=== PATIENT | female | born 1960 | race Caucasian/White ===

== ENCOUNTER 2024-07-27 18:44 | Emergency (ER) | payer OTHER, SELFPAY ==
--- NOTE | ~2024-07-27 | XR_ITS ---
EXAMINATION: XR WRIST, RIGHT CLINICAL INFORMATION: Post reduction. COMPARISON: Wrist radiographs 07/28/2024. TECHNIQUE: PA, lateral, and oblique views of the right wrist. FINDINGS: Overlying splinting material is present and obscures visualization of fine anatomic details. Partial visualization is made of a comminuted fracture of the distal radius with mild dorsal angulation. Partial visualization is made of a minimally displaced transverse fracture of the ulnar styloid process. XR/XR wrist RT 2V IMPRESSION: *Comminuted fractures of the distal right radius with partial interval reduction compared with 07/28/2024 12:04 AM. *Minimally displaced transverse fracture of the ulnar styloid process. Electronically signed by: Smith Hi MD 07/28/2024 01:57 AM [facility]
--- NOTE | ~2024-07-27 | XR_ITS ---
EXAMINATION: XR HAND/WRIST, RIGHT CLINICAL INFORMATION: Fall. Fracture. COMPARISON: None available. TECHNIQUE: PA, lateral, and oblique views of the right hand and wrist. FINDINGS: There is a comminuted distal radial fracture with intra-articular extension. There is mild dorsal angulation. A small ulnar styloid displaced fractures noted as well. The carpal bones are well-aerated without fracture. Moderate soft tissue wrist swelling is noted. XR/XR hand wrist RT IMPRESSION: Comminuted distal radial fracture with intra-articular extension and dorsal angulation. Minimally displaced ulnar styloid process fracture. Moderate right wrist soft tissue swelling. Electronically signed by: Rodolfo Griffin MD 07/27/2024 09:23 PM EST [facility]
--- NOTE | ~2024-07-27 | XR_ITS ---
EXAMINATION: XR WRIST, RIGHT CLINICAL INFORMATION: Post reduction COMPARISON: 07/27/2024 7:59 PM TECHNIQUE: PA and lateral views of the right wrist. FINDINGS: There is a comminuted transverse fracture across across the distal radial metaphysis with dorsal angulation of the distal fracture fragment. There is a fracture of the ulnar styloid at its base with no significant displacement. No other fractures are seen. XR/XR wrist RT 2V IMPRESSION: Distal radial and ulnar fractures as described above. Electronically signed by: Geronimo Marmolejo MD 07/28/2024 01:38 AM [facility]
[2024-07-27 19:20] VITALS: BP 108/80; PULSE 55; RESP 16; TEMP 36.7; O2SAT 98; BMI 19.7
--- NOTE | 2024-07-27 19:26 | ED_ITS ---
HPI - General Adult General Chief complaint: Extremity Injury, Upper Stated complaint: R wrist injury, ?wrist fx Time Seen by Provider: 07/27/24 23:11 Source: patient Mode of arrival: ambulatory Limitations: no limitations History of Present Illness ED Provider: Dr. Anton Hernández HPI narrative: 63-year-old female who presents emergency department for evaluation of right wrist injury. 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 Patient has an obvious deformity of her wrist and she came to the emergency department for evaluation. She denied any other injury. Related Data Previous Rx's ?Medication ?Instructions ?Recorded morphine 15 mg immediate release 15 mg PO Q8H PRN pain #10 tabs 07/28/24 tablet Allergies Allergy/AdvReac Type Severity Reaction Status Date / Time No Known Allergies Allergy Verified 07/27/24 19:23 Physical Exam ED Vital Signs: Vital Signs - 24 hr 07/27/24 19:20 07/28/24 00:49 Temperature 98.0 F 98.2 F Pulse Rate 55 58 Respiratory Rate 16 18 Blood Pressure 108/80 114/33 L Pulse Oximetry 98 96 Oxygen Delivery Method Room Air Room Air BMI result Body Mass Index 19.7 Vital signs were normal Exam: Right wrist revealed an obvious deformity of the distal radius with soft tissue swelling, her wrist is neurovascularly intact. There is no skin breakdown. Course Course Course Narrative: RME: 63 yold male presents to the ED right wrist/hand pain. patient fell on ground while playing picket ball. patient states no head trauma. Right wrist deformity on exam. xray ordered. Vascular and nueor exam intact. motor exam limited. Medications Administered Discontinued Medications Generic Name Dose Route Start Last Admin Trade Name Freq PRN Reason Stop Dose Admin Lidocaine HCl 5 ml 07/27/24 23:14 07/27/24 23:31 Lidocaine Hcl 1 % Mpf 5 Ml Vial INFILTRATI 07/27/24 23:15 5 ml ONCE STA Administration Lidocaine HCl 5 ml 07/27/24 23:17 07/27/24 23:31 Lidocaine Hcl 1 % Mpf 5 Ml Vial INFILTRATI 07/27/24 23:18 5 ml ONCE STA Administration Morphine Sulfate 15 mg 07/28/24 00:46 07/28/24 00:53 Morphine Sulfate Immed Release 15 Mg Tablet PO 07/28/24 00:47 15 mg ONCE ONE Administration Oxycodone HCl 5 mg 07/27/24 21:38 07/27/24 21:41 Oxycodone Hcl Immed Release 5 Mg Tablet PO 07/27/24 21:39 5 mg ONCE ONE Administration Procedures Orthopedic Fracture Reduction Right radius/ulnar fracture: Side: right Fracture Reduction Location: radius and ulna Analgesia: hematoma block (10 cc of 1% lidocaine) Technique: traction/counter-traction and finger traps Post Reduction X-rays Demonstrate: anatomical reduction Post-reduction neuro exam: intact Post-reduction vascular exam: no change Splint Applied: Yes Additional Comments: The patient was placed in an ortho glass splint by me. Initially applied 3 layers of cast padding. I used a 4 in x 30 in prepackaged ortho glass splint in order to create a sugar-tong splint. After the splint was applied, patient's hand was reexamined and she remains neurovascularly intact. Medical Decision Making Medical Decision Making [facility] Narrative: 63-year-old female who presents emergency department for evaluation of a fall and injury to her right wrist with an obvious deformity. 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 Exam did reveal obvious deformity to the distal radius with her extremity being neurovascularly intact Differential diagnosis: ?Includes but is not limited to right wrist sprain, right wrist fracture, Course: 00:56 The x-ray revealed a comminuted distal radius fracture with intra-articular extension and dorsal angulation with minimal displaced styloid process fracture. The patient was given a hematoma block with 10 cc of lidocaine and the fracture was reduced by me. The patient was then placed in a padded ortho glass sugar- tong splint. Patient was initially given oxycodone 5 mg orally and required a 2nd dose of pain medications-morphine 15 mg orally. Patient was discharged home and advised to follow-up with our hand surgeon Dr. King for re-evaluation within 1 week. Patient was advised to take Tylenol and ibuprofen for pain and for pain not relieved by these medications she was prescribed oxycodone. Radiology Impression Discussion of test interpretation with radiology: I have reviewed the radiologist's reading. Radiologist Impression: XR hand wrist RT IMPRESSION: Comminuted distal radial fracture with intra-articular extension and dorsal angulation. Minimally displaced ulnar styloid process fracture. Moderate right wrist soft tissue swelling. Electronically signed by: Rodolfo Griffin MD 07/27/2024 09:23 PM EST RP Dictated By: Rodolfo Griffin MD Prescription Management I considered prescription management with: Pain Medication (Morphine) Discharge Plan Discharge Clinical Impression: Closed fracture distal radius and ulna Qualifiers: Encounter type: initial encounter Laterality: right Qualified Code(s): S52.501A - Unspecified fracture of the lower end of right radius, initial encounter for closed fracture Patient Disposition: Home, Self-Care Instructions: Wrist Fracture in Adults (ED) Additional Instructions: You broke both bones in your forearm near your wrist (radius and ulnar styloid process) The radius fracture is broken into several pieces and the break does extend into the joint space. The radiology interpretation is below Sometimes these fractures need an operation to fix them and sometimes they can be treated with a cast. Call our orthopedic hand surgeon, Dr. King office tomorrow to make a follow- up appointment within 5-7 days. Take ibuprofen 200 mg pills, 2 pills every 6 hours as needed for pain. Take Tylenol (acetaminophen) 2 pills every 6 hours as needed for pain. For pain not relieved by ibuprofen or Tylenol take morphine 15 mg pills, 1 pill every 6 hours as needed for pain. This medication will make you sleepy, do not drive or work while taking this medication. Morphine is a narcotic medication and can be addicting. If you are concerned about addiction you can ask the pharmacist for less pills or do not get this prescription filled. Please return to the emergency department if your symptoms get worse or if you develop any symptoms that are concerning to you. XR hand wrist RT IMPRESSION: Comminuted distal radial fracture with intra-articular extension and dorsal angulation. Minimally displaced ulnar styloid process fracture. Moderate right wrist soft tissue swelling. Electronically signed by: Rodolfo Griffin MD 07/27/2024 09:23 PM EST RP Dictated By: Rodolfo Griffin MD Prescriptions: New morphine 15 mg tablet 15 mg PO Q8H PRN (Reason: pain) Qty: 10 0RF Rx Instructions: Partial Fill upon patient request. Referrals: Urmila King MD [Physician] - 1 week (XR hand wrist RT IMPRESSION: Comminuted distal radial fracture with intra-articular extension and dorsal angulation. Minimally displaced ulnar styloid process fracture. ) Discharge Date/Time: 07/28/24 00:56 Print Language: Monegasque
[2024-07-27] MEDS: oxyCODONE HCl Immed Release 5 MG TABLET PO (21:41)
[2024-07-27] MEDS: Lidocaine HCl 1 % MPF 5 ML VIAL INFILTRATI ×2 (23:31)
--- NOTE | 2024-07-27 23:32 | PC.NURSE ---
Patient placed in finger lock with weights by Dr. Hernández.
--- NOTE | 2024-07-28 00:01 | PC.NURSE ---
patient removed from finger trap.
[2024-07-28 00:49] VITALS: BP 114/33; PULSE 58; RESP 18; TEMP 36.8; O2SAT 96
[2024-07-28] MEDS: Morphine Sulfate Immed Release 15 MG TABLET PO (00:53)
== END 2024-07-28 00:56 | disposition home or self-care (01) ==
PROVIDERS: Emergency Provider Emergency Medicine Emergency Medical Services; PCP Internal Medicine
DX: S52.501A Unspecified fracture of the lower end of right radius, initial encounter for closed fracture (principal); M25.531 Pain in right wrist; M79.641 Pain in right hand; X58.XXXA Exposure to other specified factors, initial encounter; Y93.69 Activity, other involving other sports and athletics played as a team or group; Y92.312 Tennis court as the place of occurrence of the external cause; Y99.0 Civilian activity done for income or pay
CPT/HCPCS: 25605; 73100; 73110; 73130; 99283; 99284; J2003

== ENCOUNTER 2024-08-03 07:55 | Outpatient (REF) | payer OTHER, SELFPAY | END 2024-08-03 07:56 | disposition home or self-care (01) | LOC: HO.HOSX 07:55 | DX: M25.531 Pain in right wrist (principal); S52.501D Unspecified fracture of the lower end of right radius, subsequent encounter for closed fracture with routine healing | CPT/HCPCS: 73110; 99202 ==

== ENCOUNTER 2024-08-03 13:54 | Outpatient (AMB) | payer OTHER, SELFPAY ==
--- NOTE | 2024-08-03 14:08 | MHC.OFFVIS ---
Intake Visit Reasons: FC - Right Distal Rad & Ulnar Styloid Fx 07/27/24 Intake Note: Juliana is a 63 year old female who presents today as a new patient for a fracture care visit for her closed fracture of distal radius and ulna. 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 Patient was reduced in ED. Pt states she does have pain here and there. Pt denies any previous surgeries on her right arm. Allergies No Known Allergies Allergy (Verified 08/03/24 14:08) HPI HPI FC - Right Distal Rad & Ulnar Styloid Fx 07/27/24: Details: Patient is a 63-year-old female who presents for ED follow-up status post right distal radius and ulnar styloid fractures, date of injury 07/27/2024. On that date, the patient reports that she was playing pickleball, and she was using a bone machine to practice lateral movement, when she tripped and fell over her foot and landed on her right wrist, and she immediately noticed a significant deformity and pain at that time. Patient was evaluated in the emergency department that day, where x-rays revealed a displaced fracture of the right distal radius and nondisplaced fracture of the right ulnar shaft. Fracture was reduced in the emergency department, as well as splinted. Physical Exam Extrem Other: Patient is alert, oriented, and in no acute distress. Sugar-tong splint that was applied postreduction is in place Neuro: Normal sensation of the tips of all digits of the right hand at this time Vascular: Cap refill brisk Pain: Patient reports no tenderness to palpation of the digits of the right hand at this time Range of motion of the right hand painless ROM: Patient is able to flex and extend the digits of the right hand without difficulty Skin: No lacerations or abrasions. General: Some mild edema noted of the digits of the right upper extremity No ecchymosis, erythema, or evidence of infection. Psych: Appears grossly normal Affect normal Attitude cooperative Patient is alert, oriented, and in no acute distress. Results Reviewed Results Reviewed: X-rays obtained in the office today and independently reviewed by me, Rashad Voss PA-C, demonstrate minimally displaced fracture of the right distal radius, postreduction, with approximately 5 degrees of dorsal tilt. Assessment & Plan Assessment & Plan (1) Fracture of right distal radius: Code(s): S52.501A - Unspecified fracture of the lower end of right radius, initial encounter for closed fracture Category: Medical Plan 1. Fracture of right distal radius Post reduction in the ED Patient appears to be recovering well from her injury Patient is educated about the typical recovery course At this time, patient was informed that due to only having approximately 5 degrees of dorsal angulation of the fracture, surgery can be held off for now However, patient is educated that she should remain in the splint that was applied postreduction, to avoid any risk of displacement. Patient is educated that she should not lift anything heavier than a pen or pencil in the hand to prevent any disturbance of the fracture However, patient was educated she should work on gentle range of motion of the elbow, fingers, and shoulder to prevent stiffness Patient was amenable to this plan Patient will follow-up in 1 week with repeat x-rays with Dr. King, sooner with any acute concerns Orders: Orders XR wrist RT min 3V Today M25.531 - Pain in right wrist Coding Level of Care Code New Pt Level 3 (09513) Diagnoses Fracture of right distal radius S52.501A
== END 2024-08-03 14:37 | disposition home or self-care (01) ==
PROVIDERS: PCP Internal Medicine
DX: S52.501A Unspecified fracture of the lower end of right radius, initial encounter for closed fracture (principal)
CPT/HCPCS: 99203

== ENCOUNTER 2024-08-08 15:04 | Outpatient (REF) | payer OTHER, SELFPAY | END 2024-08-08 15:05 | disposition home or self-care (01) | LOC: HO.HOSX 15:04 | PROVIDERS: Visit Provider Orthopaedic Surgery | DX: Z13.89 Encounter for screening for other disorder (principal) ==

== ENCOUNTER 2024-08-09 08:35 | Outpatient (REF) | payer OTHER, SELFPAY | END 2024-08-09 08:36 | disposition home or self-care (01) | LOC: HO.HOSX 08:35 | PROVIDERS: Visit Provider Orthopaedic Surgery | DX: M25.531 Pain in right wrist (principal); S52.501A Unspecified fracture of the lower end of right radius, initial encounter for closed fracture; S52.611A Displaced fracture of right ulna styloid process, initial encounter for closed fracture | CPT/HCPCS: 25600; 73110; 99212 ==

== ENCOUNTER 2024-08-09 14:43 | Outpatient (AMB) | payer OTHER, SELFPAY ==
--- NOTE | 2024-08-09 14:55 | A.OFFVIS_ITS ---
Vital Signs 08/09/24 14:56 Height 5 ft 7 in Weight 126 lb BMI 19.7 Intake Visit Reasons: OV- Right Distal Rad & Ulnar Styloid Fx 07/27/24 Intake Note: Juliana is a 63 yo right hand dominant female who presents for a follow up evaluation s/p right distal radius and ulnar styloid fractures, DOI 07/27/2024. Patient reports she was doing well until her splint was removed. She has not been taking anything for pain. Allergies No Known Allergies Allergy (Verified 08/09/24 15:02) HPI HPI OV- Right Distal Rad & Ulnar Styloid Fx 07/27/24: Details: Juliana is a 63 year old right hand dominant woman who presents for a right distal radius & ulnar styloid fracture, DOI: 07/27/24, after a fall playing Pickleball. She was seen in the ED where her fracture was reduced and placed in a sugar-tong splint. She says she was doing well while in her splint, but this was removed today in clinic for radiographs and she complains of new & worsening pain in her wrist since this was removed. She denies any numbness or tingling. 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 Review of Systems Const All systems reviewed & are unremarkable except as noted in HPI and below Physical Exam Vital Signs: BMI result Body Mass Index 19.7 Const General: cooperative, healthy appearing and no acute distress Orientation/consciousness: patient oriented x3 HEENT Head: Yes normocephalic and Yes atraumatic Eyes EOM: EOMs intact bilaterally Resp Effort & Inspection: normal respiratory effort and able to speak in complete sentences Cardio Jugular venous distension: no JVD Skin General skin exam: turgor normal Rashes: no rashes Neuro General: patient oriented x3 Extrem Other: Evaluation of Right Upper Extremity: The patient is alert, oriented, and in no acute distress Neuro: Median, Ulnar, Radial nerves motor and sensory intact and sensation is normal to the tips of all digits Vascular: Cap refill brisk ROM: She can bring her fingers closed to a weak fist and back into full extension, with encouragement Some stiffness in her fingers from being placed in her splint Skin: No lacerations or abrasions. General: Resolving swelling and ecchymosis No Erythema or evidence of infection. Only very Mild tenderness over the distal radius, including over that dorsal ulnar fragment No tenderness over the distal ulna Radiographs: 3 views of the right wrist were taken and viewed by me today in clinic. They show a comminuted intra-articular distal radius fracture with satisfactory fracture alignment & some displacement of the dorsal ulnar fragment of the distal radius, unchanged from prior There is also a minimally displaced ulnar styloid process fracture Psych Appearance: grossly normal Affect: normal affect Attitude: cooperative Office Procedures AMB Fracture Care Details: Fracture care [id number] Fracture Billing Code: Fracture Billing Code Assessment & Plan Assessment & Plan (1) Fracture of right distal radius: Code(s): S52.501A - Unspecified fracture of the lower end of right radius, initial encounter for closed fracture Category: Medical (2) Fracture of right ulnar styloid: Code(s): S52.611A - Displaced fracture of right ulna styloid process, initial encounter for closed fracture Category: Medical Plan Assessment & Plan: 1. Right distal radius fracture, comminuted and intra-articular S/P fall, DOI: 07/27/24 Reduced in the ED 2. Right ulnar styloid fracture, S/P fall, DOI: 07/27/24 I educated her about this condition I discussed operative and non-operative treatment options We will continue to manage this non-operatively She was placed in a short arm cast to be worn for the next 2 weeks She should keep her hand elevated at or above heart level when at rest at home for the next 2 weeks I discussed activity modification, she is to lift nothing heavier than a ce llphone for the next 2 weeks. She should work on gentle finger ROM exercises She will follow up in 2 weeks with X-rays 3v R wrist, OOP. Anticipate placement in velcro wrist splint or short arm cast depending on bony healing Scribed for Urmila King MD by Isidro Magana ophthalmic medical technician, on 08/09/24 at 3:10 PM, EST. Orders: Orders XR wrist RT min 3V Today M25.531 - Pain in right wrist Coding Level of Care Code Est Pt Level 3 (33510) Diagnoses Fracture of right distal radius S52.501A Fracture of right ulnar styloid S52.611A CPT Codes Fracture Care - Fracture Billing Code: Fracture Billing Code ([id number])
[2024-08-09 14:56] VITALS: BMI 19.7
== END 2024-08-09 15:55 | disposition home or self-care (01) ==
PROVIDERS: PCP Internal Medicine; Visit Provider Orthopaedic Surgery
DX: S52.501A Unspecified fracture of the lower end of right radius, initial encounter for closed fracture (principal); S52.611A Displaced fracture of right ulna styloid process, initial encounter for closed fracture
CPT/HCPCS: 25600; 99213

== ENCOUNTER 2024-08-23 09:24 | Outpatient (REF) | payer OTHER, SELFPAY ==
--- NOTE | ~2024-08-23 | XR_ITS ---
EXAMINATION: XR WRIST RIGHT CLINICAL INFORMATION: Pain in right wrist M25.531. COMPARISON: XR Right wrist 08/09/2024 TECHNIQUE: PA, lateral, and oblique views of the right wrist. FINDINGS: Soft tissue swelling at the wrist. Redemonstration of comminuted fracture of the distal radius with mild impaction and dorsal angulation of the distal fracture fragment. There is a bridging bone formation, although fracture lines are still visible. Redemonstration of a minimally displaced transverse fracture of the ulnar styloid process. XR/XR wrist RT min 3V IMPRESSION: Healing comminuted fractures of the distal radius and minimally displaced transverse fracture of the ulnar styloid process. Electronically signed by: Kimberly Alegria MD 09/27/2024 01:29 PM [facility]
== END 2024-08-23 09:25 | disposition home or self-care (01) ==
LOC: HO.HOSX 09:24
PROVIDERS: Visit Provider Orthopaedic Surgery
DX: M25.531 Pain in right wrist (principal); S52.501D Unspecified fracture of the lower end of right radius, subsequent encounter for closed fracture with routine healing; S52.611D Displaced fracture of right ulna styloid process, subsequent encounter for closed fracture with routine healing
CPT/HCPCS: 73110; 99212

== ENCOUNTER 2024-08-23 12:57 | Outpatient (AMB) | payer OTHER, SELFPAY ==
--- NOTE | 2024-08-23 13:10 | MHC.OFFVIS ---
Vital Signs 08/23/24 13:25 Height 5 ft 7 in Weight 126 lb BMI 19.7 Intake Visit Reasons: OV-RT Dis.Rad&Ulnar Rfldfzu35/13/24cast offw/xrays Intake Note: Juliana is a 63 year old right hand dominant female who presents for her follow up visit for her right distal radius and ulnar styloid fractures, DOI 07/27/2024. Cast removed and xrays updated in office. States she is doing much better from her last visit, her pain has improved. Allergies No Known Allergies Allergy (Verified 08/23/24 13:26) HPI HPI OV-RT Dis.Rad&Ulnar Ikchnvl81/13/24cast offw/xrays: Details: Juliana is a 63 year old right hand dominant woman who returns for her right distal radius & ulnar styloid fracture, DOI: 07/27/24, after a fall playing Pickleball. She says she is doing well, and feels much better than she was at her last appointment She denies any numbness or tingling. 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 Physical Exam Vital Signs: BMI result Body Mass Index 19.7 Extrem Other: Evaluation of Right Upper Extremity: The patient is alert, oriented, and in no acute distress Neuro: Median, Ulnar, Radial nerves motor and sensory intact and sensation is normal to the tips of all digits Vascular: Cap refill brisk ROM: She can bring her fingers closed to a weak fist and back into full extension, with encouragement Still has some stiffness in her fingers. We worked on range of motion exercises in clinic and she was able to actively bring her fingertips to a fist and then back into extension She is nontender to firm palpation over the distal radius fracture, except for the fragment over the far ulnar side where she does have some mild tenderness DRUJ stable. She has got perhaps 30 degrees of pronation and about 35 degrees of supination General: Swelling and ecchymosis significantly improved No Erythema or evidence of infection. Radiographs: 3 views of the right wrist were taken and viewed by me today in clinic. They show a comminuted intra-articular distal radius fracture with satisfactory fracture alignment & with increased displacement of the dorsal ulnar fragment of the distal radius, worsened from prior There is also a minimally displaced ulnar styloid process fracture. She is now at about 15 degrees of dorsal tilt on the lateral view Assessment & Plan Assessment & Plan (1) Fracture of right distal radius: Code(s): S52.501A - Unspecified fracture of the lower end of right radius, initial encounter for closed fracture Category: Medical (2) Fracture of right ulnar styloid: Code(s): S52.611A - Displaced fracture of right ulna styloid process, initial encounter for closed fracture Category: Medical Plan Assessment & Plan: 1. Right distal radius fracture, comminuted and intra-articular S/P fall, DOI: 07/27/24 Reduced in the ED 2. Right ulnar styloid fracture, S/P fall, DOI: 07/27/24 I educated her about this condition I discussed operative and non-operative treatment options We will continue to manage this non-operatively She was fitted for a velcro wrist splint, to be worn like a cast except for showering for the next 2 weeks. After 2 weeks she will remove this when at home but continue to wear this when out of the house for the following 2 weeks. I discussed activity modification, she is to slowly increase her weight limit as tolerated to ~5lbs, and work on increasing her activity over the next 4 weeks. She is still to avoid any impact activities or falls. She should work on gentle finger ROM exercises. She is now to work on pronosupination exercises, going no further than ~[address], when she is out of her splint. I ordered OT hand therapy to work on finger & wrist ROM, with the goal of working on strengthening and normalizing hand function ~4 weeks from today. She will follow up in 4 weeks with X-rays 3v R wrist, OOP. Please note that greater than 30 minutes was spent with this patient going over the history, evaluating the patient and radiographs, formulating possible treatment options, discussing them with the patient, and documenting the visit. Scribed for Urmila King MD by Isidro Magana, senior medical billing specialist, on 08/23/24 at 1:25 PM, EST. Orders: Orders XR wrist RT min 3V Today M25.531 - Pain in right wrist Coding Level of Care Code Global (06300) Diagnoses Fracture of right distal radius S52.501A Fracture of right ulnar styloid S52.611A
[2024-08-23 13:25] VITALS: BMI 19.7
== END 2024-08-23 14:08 | disposition home or self-care (01) ==
PROVIDERS: PCP Internal Medicine; Visit Provider Orthopaedic Surgery
DX: S52.501A Unspecified fracture of the lower end of right radius, initial encounter for closed fracture (principal); S52.611A Displaced fracture of right ulna styloid process, initial encounter for closed fracture
CPT/HCPCS: 99024

== ENCOUNTER 2024-09-20 14:42 | Outpatient (AMB) | payer OTHER, SELFPAY ==
--- NOTE | 2024-09-20 14:48 | MHC.OFFVIS ---
Vital Signs 09/20/24 14:50 Height 5 ft 7 in Weight 126 lb BMI 19.7 Intake Visit Reasons: OV-RT Dis.Rad&Ulnar Srmbslb72/13/24 ROM check Intake Note: Juliana is a 63 year old right hand dominant female who presents for her follow up visit for her right distal radius and ulnar styloid fractures, DOI 07/27/2024. Brace removed and xrays updated in office. States she is doing much better from her last visit, she is working on her ROM, has pain with dorsi flexion. Accompanied by: Dyan Allergies No Known Allergies Allergy (Verified 09/20/24 15:23) HPI HPI OV-RT Dis.Rad&Ulnar Zdquqid83/13/24 ROM check: Details: Juliana is a 63 year old right hand dominant woman who returns for her right distal radius & ulnar styloid fracture, DOI: 07/27/24, after a fall playing Pickleball. She says she is doing well, and feels much better than she was at her last appointment. She is here for a ROM check. She denies any numbness or tingling. She reports some pain with dorsiflexion but says this is tolerable. She has been attending OT hand therapy. 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 Wrist ROM: Full pronation ~60 degrees supination ~25 degrees extension General: Swelling and ecchymosis resolved Radiographs: 3 views of the right wrist were taken and viewed by me today in clinic. They show a comminuted intra-articular distal radius fracture with satisfactory fracture alignment & displacement of the dorsal ulnar fragment of the distal radius, unchanged from prior.There is also a minimally displaced ulnar styloid process fracture. She is now at about 15 degrees of dorsal tilt on the lateral view. Some evidence of interval bony healing Assessment & Plan Assessment & Plan (1) Fracture of right distal radius: Code(s): S52.501A - Unspecified fracture of the lower end of right radius, initial encounter for closed fracture Category: Medical (2) Fracture of right ulnar styloid: Code(s): S52.611A - Displaced fracture of right ulna styloid process, initial encounter for closed fracture Category: Medical Plan Assessment & Plan: 1. Right distal radius fracture, comminuted and intra-articular S/P fall, DOI: 07/27/24 Reduced in the ED 2. Right ulnar styloid fracture, S/P fall, DOI: 07/27/24 I educated her about this condition She appears to be healing well and working with OT She will discontinue her splint at this time. She can wear this when out of the house if there is snow or ice on the ground, for the next 2 weeks I discussed activity modification, she is to begin to use her hand for normal daily activities. She will work on wrist ROM exercises, including flexion, extension, and pronosupination She will continue to work with OT hand therapy. She will follow up prn Scribed for Urmila King MD by Isidro Magana, chief medical officer, on 09/20/24 at 3:30 PM, EST. Orders: Orders XR wrist RT min 3V Today M25.531 - Pain in right wrist Coding Level of Care Code Global (68850) Diagnoses Fracture of right distal radius S52.501A Fracture of right ulnar styloid S52.611A
[2024-09-20 14:50] VITALS: BMI 19.7
== END 2024-09-20 15:45 | disposition home or self-care (01) ==
PROVIDERS: PCP Internal Medicine; Visit Provider Orthopaedic Surgery
DX: S52.501A Unspecified fracture of the lower end of right radius, initial encounter for closed fracture (principal); S52.611A Displaced fracture of right ulna styloid process, initial encounter for closed fracture
CPT/HCPCS: 99024

== ENCOUNTER 2024-09-20 14:42 | Outpatient (REF) | payer OTHER, SELFPAY ==
--- NOTE | ~2024-09-20 | XR_ITS ---
CLINICAL HISTORY: M25.531 - Pain in right wrist 3 view right wrist Comparison: None Findings: There is a nondisplaced transverse fracture through the distal radial metaphysis with mild dorsal angulation of the distal radial fragment. There is mild comminution of the radial epiphysis and extension of the fracture line longitudinally into the articular surface. Fracture involves the radioulnar joint. There is a nondisplaced transverse fracture through the ulnar styloid. Mild degenerative changes of the wrist. No radiopaque foreign body. Decreased bone mineralization. IMPRESSION: 1. Nondisplaced, mildly angulated distal radius fracture. Nondisplaced ulnar styloid fracture. This document has been electronically signed by: Pranav Hernandez MD on 09/23/2024 18:48:06
== END 2024-09-20 14:43 | disposition home or self-care (01) ==
LOC: HO.HOSX 14:42
PROVIDERS: PCP Internal Medicine; Visit Provider Orthopaedic Surgery
DX: M25.531 Pain in right wrist (principal); S52.501D Unspecified fracture of the lower end of right radius, subsequent encounter for closed fracture with routine healing; S52.611D Displaced fracture of right ulna styloid process, subsequent encounter for closed fracture with routine healing
CPT/HCPCS: 73110; 99212

== ENCOUNTER → 2024-09-20 15:13 | Outpatient (BNV) | payer OTHER, SELFPAY | PROVIDERS: PCP Internal Medicine; Visit Provider Radiology Diagnostic Radiology | DX: S52.501A Unspecified fracture of the lower end of right radius, initial encounter for closed fracture (principal); S52.614A Nondisplaced fracture of right ulna styloid process, initial encounter for closed fracture | CPT/HCPCS: 73110 ==

== ENCOUNTER 2024-12-08 14:23 | Outpatient (RCR) | payer OTHER, SELFPAY ==
--- NOTE | 2024-09-12 10:11 | MHC.OT.OEV ---
[address] [phone] F: [phone] Occupational Therapy Evaluation Patient Name: Juliana Caicedo Diagnosis: (R)fx of distal radius, ulnar styloid Date of Onset: 07/27/24 Date of Surgery: Attending Provider: Urmila King Prescribed Treatment: Follow Up Appointment: History of Current Condition: Patient is a 63 y/o right handed female with who sustained a mechanical fall while playing Pickle Ball resulting in a (R)distal radius and ulnar styloid fx (07/27). 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 She reports PLOF (I)ADLs/IADLs, she is retired and lives alone. She stated 0/10 pain at rest and 4/10 pain during activity with intermittent tingling. She reports difficulty with cooking, driving She enjoys playing music, weightlifting and Pickle Ball. 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, weight lifting Current Level of Function and Occupation Self Care, Employment, Leisure: Mod (A) ADLs/IADLs Has stopped leisure activities Sleep: (I) Driving: max (A) Vision: Balance: Pain Assessment Pain Score: 4 Pain Scale Used: Numeric (0 - 10) Pain Location and Description: 4/10 (R)wrist Aggravating Factors: Alleviating Factors: Motrin Skin and Soft Tissue Assessment Skin and Soft Tissue: Comments: Edema, bruising on volar side of wrist Nerve assessment Ulnar Nerve: Median Nerve: Radial Nerve: Comments: Sensory Assessment Temperature: Light Touch: Proprioception: Vibration: Comments: Edema Assessment Upper Extremity: Right Impaired Lower Extremity: Comments: Dexterity Assessment Dexterity: Right Impaired Comments: Special Tests Comments: AROM(PROM) Strength Cervical Cervical Flexion: Cervical Extension: Cervical Lateral Flexion: Cervical Rotation: Comments: Shoulder Flexion: Extension: Abduction: Internal Rotation: External Rotation: Comments: Flexion: Extension: Abduction: Internal Rotation: External Rotation: Comments: Elbow Flexion: Extension: Pronation: Supination: Comments: Flexion: Extension: Pronation: Supination: Comments: Wrist Flexion: 15 Extension: 11 Ulnar Deviation: 11 Radial Deviation: 7 Comments: Flexion: Extension: Ulnar Deviation: Radial Deviation: Comments: Not tested Thumb Thumb CMC Flexion: Thumb MCP Flexion: Thumb IP Flexion: Radial Abduction: Palmar Abduction: [place] (K[place]andji 0-10): Comments: Digits Index MCP: 70 PIP: 75 DIP: 30 Long MCP: 65 PIP: 82 DIP: 40 Ring MCP: 60 PIP: 90 DIP: 52 Small MCP: 70 PIP: 93 DIP: 50 Comments: Gross Grasp: (L)67.5lbs. Lateral Pinch: Two-Point Pinch: Three-Jaw Ej: Comments: (R)not tested Patient Education Primary Language: Assistant Prosecuting Attorney Required: Yes Current Knowledge: Teaching Method: Education Needs Identified on Evaluation: How did patient/family demonstrate learning? Barriers to Learning: Readiness for Learning: Who was educated? Comments: Plan of Care Assessment: Based on initial OT evaluation patient presents with pain/tingling, impaired wrist and digit AORM, impaired strength, edema and impaired ADL performance. Quick DASH= 68.2 indicating patient's perceived impairment of UE during self care tasks. Due to the documented impairments patient's CLOF is mod (A) ADLs/IADLs and it is recommended that she receives skilled OT intervention in order for her to return to her PLOF of (I) during self care tasks and leisure activities. Thank you for your referral. STG Duration: 2 weeks Short Term Goals: Patient will report 2/10 pain in (R)wrist during activity Patient will increase wrist extension by 10* Patient will increase wrist flexion by 10* Patient will be (I) with edema management techniques LTG Duration: 4 weeks Associate Business Analyst Goals: Patient will report 0/10 pain during activity Patient will have full wrist ROM Patient will be (I) with HEP patient will decrease Quick DASH score by 40% Frequency and Duration: The patient will be seen 2x a week for 4 weeks Treatment Plan: Therapeutic Exercise Therapeutic Activity Home Exercise Program Patient Education Edema Control ADL Training NMES Paraffin Fluidotherapy MHP Cold Packs Joint Mobilization Soft Tissue Mobilization Kinesiotaping Other (see comments) Skilled OT eval and treat Electronically Signed By: Jayda Knowles OTPhillip/Amol, CLT Reviewed/agree with student documentation: Therapist: Please sign and return to therapist, Thank you for your referral.
--- NOTE | 2024-11-10 16:12 | MHC.OT.OP ---
[address] [phone] F: [phone] Occupational Therapy Progress Note Patient Name: Juliana Caicedo Diagnosis: (R)fx of distal radius, ulnar styloid Date of Surgery: Date of Evaluation: 09/09/24 Treatments to Date: 13 Cancellations to Date: No Shows to Date: Subjective: I can do a plank on my forearms. Pain Score: 2 Pain Location: (R)wrist Objective Measures: Administered the Quick DASH= 22.7% Fire Inspector strength= 19lbs. ROM Status: Progressing Assessment: Patient was seen for skilled OT progress note. Patient has actively participated in skilled OT and is eager to achieve her goals and her (I). During treatment sessions patient required verbal encouragement to increase her ROM and to push ROM to feeling of discomfort. At this time patient has increased her (R) wrist flexion to 40* and extension to 40* which is a 25* increase in flexion and 29* increase in extension. She has achieved 19lbs. in medic technician strengthen and is compliant with her HEP. She has decreased her Quick dash score by 45.5%. She requires skilled OT intervention in order to progress her wrist ROM and strengthen in order for her to return to her PLOF during self care tasks. She has great rehab potential as she is motivated and eager to return to her hobbies. Short Term Goals: Patient will report 2/10 pain in (R)wrist during activity - PROGRESSING Patient will increase wrist extension by 10*- GOAL MET Patient will increase wrist flexion by 10*- GOAL MET Patient will be (I) with edema management techniques - PROGRESSING Jail Goals: Patient will report 0/10 pain during activity - PROGRESSING Patient will have full wrist ROM - PROGRESSING Patient will be (I) with HEP- PROGRESSING patient will decrease Quick DASH score by 40%- GOAL MET Frequency and Duration: The patient will be seen 2x a week for 4 weeks Treatment Plan: Therapeutic Exercise Therapeutic Activity Home Exercise Program Patient Education Desensitization/Sensory Re-ed Edema Control ADL Training Ultrasound NMES Iontophoresis Paraffin Fluidotherapy MHP Cold Packs Joint Mobilization Soft Tissue Mobilization Kinesiotaping Other (see comments) Skilled OT eval and treat Electronically Signed By: Jayda Knowles OTPhillip/L, CLT Reviewed/agree with student documentation: N/A Therapist:
--- NOTE | 2024-12-08 16:04 | MHC.OT.DC ---
[address] [phone] F: [phone] Occupational Therapy Discharge Note Patient Name: Juliana Caicedo Provider: Urmila King Diagnosis: (R)fx of distal radius, ulnar styloid Date of Surgery: Date of Evaluation: 09/09/24 Date of Discharge: Treatments to Date: 17 Cancellations to Date: No Shows to Date: Discharge Status: Discharge Summary: Patient is discharged from skilled OT as patient has achieved her Maximal potential during therapy. At discharged she active wrist extension 45*, wrist flexion 56*, horologist strength as 25lbs. Quick DASH= 11.4. She will continue to participate in daily activities and progress with wrist ROM at home. Thank you for your referral. Electronically Signed By: MANSOOR Kiser/MITZY Carmichael Reviewed/agree with student documentation: N/A Therapist: Please Sign and return to therapist, thank you for your referral.
== END 2024-12-09 09:00 | disposition home or self-care (01) ==
LOC: HO.OT 14:23
PROVIDERS: PCP Internal Medicine; Visit Provider Orthopaedic Surgery
DX: S52.501D Unspecified fracture of the lower end of right radius, subsequent encounter for closed fracture with routine healing (principal); S52.611D Displaced fracture of right ulna styloid process, subsequent encounter for closed fracture with routine healing
CPT/HCPCS: 97110; 97140; 97165; 97530; 97535